=== PATIENT | female | born 1945 | race Caucasian/White ===

== ENCOUNTER 2024-04-08 06:05 | Day surgery (SDC) | payer OTHER ==
[2024-04-05 13:23] VITALS: BP 145/81
[~2024-04-08] VITALS: Ht 157.5 cm; Wt 64.9 kg
[2024-04-08] MEDS ORDERED: SURGIFLO APPLICATOR 1 EACH APPL TOP ONE (09:30)
[2024-04-08] MEDS ORDERED: CEFAZOLIN SODIUM 1,000 MG VIAL IV ONE (09:30)
[2024-04-08] MEDS ORDERED: METRONIDAZOLE/SODIUM CHLORIDE 500 MG/100 ML PIGGYBACK IV ONE (09:30)
[2024-04-08] MEDS ORDERED: HEMOSTATIC MATRIX WITH THROMBIN KIT TOP ONE (09:30)
[2024-04-08] MEDS ORDERED: KETOROLAC TROMETHAMINE 30 MG VIAL IV STA (10:05)
[2024-04-08 10:21] LABS: RH NEGATIVE
== END 2024-04-08 13:35 | disposition home or self-care (01) ==
LOC: CIR.AMB 06:05
PROVIDERS: ATTEND Obstetrics & Gynecology Gynecologic Oncology
DX: D27.0 Benign neoplasm of right ovary (principal); N83.8 Other noninflammatory disorders of ovary, fallopian tube and broad ligament; D39.11 Neoplasm of uncertain behavior of right ovary